=== PATIENT | female | born 1955 | race African-American/Black ===

== ENCOUNTER 2025-02-11 07:06 | Inpatient (IN) | payer MEDICARE, OTHER ==
[~2025-02-11] VITALS: Ht 170.2 cm; Wt 66.7 kg
[2025-02-11 08:10] LABS: BASOPHILS % 0.7 % (0.0-2.0); EOSINOPHILS % 5.3 % (0.0-5.0); HEMATOCRIT. 30.6 % (36.0-48.0); HEMOGLOBIN. 10.2 g/dL (12.0-16.0); LYMPHOCYTES % 33.7 % (20.0-50.0); MEAN PLATELET VOLUME 7.6 fl (7.4-10.4); MONOCYTES % 5.8 % (2.0-8.0); NEUTROPHILS % 54.5 % (40.0-76.0); PLATELET 326 x1000/uL (130-400); RED BLOOD CELL COUNT 3.45 mill/uL (4.2-5.4); RED CELL DISTRIBUTION WIDTH 14.2 % (11.6-14.6)
[2025-02-11] MEDS: CHLORDIAZEPOXIDE 25MG CAPSULE PO ONE (08:15)
[2025-02-11 08:24] LABS: INR 1.0
[2025-02-11 08:31] LABS: CREATININE 1.2 mg/dL (0.6-1.0); UREA NITROGEN BLOOD 21.0 mg/dL (9-23)
[2025-02-11] MEDS ORDERED: CHLORDIAZEPOXIDE 25MG CAPSULE PO SCH (09:00)
[2025-02-11] MEDS: SODIUM CHLORIDE 0.9% 1,000 ML IV ONE (09:03)
[2025-02-11] MEDS: FOLIC ACID 1 MG, THIAMINE HCL 100 MG, MVI, ADULT NO.1 10 ML in DEXTROSE 5% WATER 1,000 ML IV ONE (09:03)
[2025-02-11] MEDS: LORAZEPAM 2MG/ML UD SYRINGE IV SCH (10:46)
[2025-02-11 14:00] VITALS: BP 140/70; PULSE 62; RESP 18; TEMP 36.5
[2025-02-11] MEDS ORDERED: IPRATROPIUM/ALBUTEROL 0.5-3(2.5)MG/3ML NEB HHN PRN (18:00)
[2025-02-11] MEDS ORDERED: ONDANSETRON HCL 4MG/2ML INJ IV PRN (18:00)
[2025-02-11] MEDS ORDERED: NALOXONE HCL 0.4MG/ML VIAL IV PRN (18:00)
[2025-02-11] MEDS: HYDROCODONE/ACETAMINOPHEN 5/325MG TABLET PO PRN (19:50)
[2025-02-11 20:00] VITALS: BP 119/62; PULSE 80; RESP 18; TEMP 36.4; O2SAT 99
[2025-02-11] MEDS: ENOXAPARIN 40MG/0.4ML SYR SUBCUT SCH (22:45)
[2025-02-11] MEDS ORDERED: DEXTROSE 50% WATER 50ML SYRINGE IV PRN (23:00)
[2025-02-11 23:09] LABS: ASPARTATE AMINOTRANSFERASE 27 IU/L (<34); BILIRUBIN DIRECT 0.2 mg/dL (<=3.0); BILIRUBIN TOTAL 0.5 mg/dL (0.1-1.0); PROTEIN TOTAL 7.2 g/dL (6.0-8.3)
[2025-02-11] MEDS: SODIUM CHLORIDE 0.45% 1,000 ML IV SCH (23:12)
[2025-02-12] VITALS (7 sets, daily range): BP systolic 130–169; BP diastolic 55–80; PULSE 60–85; RESP 17–19; TEMP 35.6–36.6; O2SAT 96–99
[2025-02-12] MEDS: BLOOD SUGAR DIAGNOSTIC STRIP TEST SCH (07:41)
[2025-02-12] MEDS: INSULIN LISPRO 100 UNITS/ML SUBCUT SCH (07:41)
[2025-02-12 07:57] LABS: BASOPHILS % 0.5 % (0.0-2.0); EOSINOPHILS % 7.4 % (0.0-5.0); HEMATOCRIT. 29.2 % (36.0-48.0); HEMOGLOBIN. 10.0 g/dL (12.0-16.0); LYMPHOCYTES % 40.9 % (20.0-50.0); MEAN PLATELET VOLUME 8.6 fl (7.4-10.4); MONOCYTES % 6.5 % (2.0-8.0); NEUTROPHILS % 44.7 % (40.0-76.0); PLATELET 254 x1000/uL (130-400); RED BLOOD CELL COUNT 3.19 mill/uL (4.2-5.4); RED CELL DISTRIBUTION WIDTH 14.3 % (11.6-14.6)
[2025-02-12 08:14] LABS: CLARITY URINE CLEAR (CLEAR); COLOR URINE YELLOW (YELLOW); GLUCOSE URINE NEGATIVE (NEGATIVE); KETONES URINE NEGATIVE (NEGATIVE); PH URINE 6.5 (4.5-8.0); PROTEIN URINE NEGATIVE (NEGATIVE); SPECIFIC GRAVITY URINE 1.010 (1.005-1.030)
[2025-02-12 08:15] LABS: LEUKOCYTE ESTERASE URINE TRACE (NEGATIVE); NITRITE URINE NEGATIVE (NEGATIVE); OCCULT BLOOD URINE NEGATIVE (NEGATIVE); UROBILINOGEN URINE 0.2 E.U./dL (0.2-1.0)
[2025-02-12 08:25] LABS: CREATININE 0.8 mg/dL (0.6-1.0); TRIGLYCERIDE 107 mg/dL (0-150); UREA NITROGEN BLOOD 11 mg/dL (9-23)
[2025-02-12 08:26] LABS: LDL CHOLESTEROL 78 mg/dL (5-100)
[2025-02-12 08:27] LABS: T4 FREE 1.23 ng/dL (0.89-1.76)
[2025-02-12 08:49] LABS: BACTERIA URINE 3+; SQUAMOUS EPITHELIAL CELL URINE 1+ /lpf (RARE/1+)
[2025-02-12 08:50] LABS: RBC URINE NONE SEEN /hpf (0-2); WBC URINE 0-2 /hpf (0-2)
[2025-02-12] MEDS ORDERED: METRONIDAZOLE 500 MG PREMIX 100 ML IV NR (18:00)
[2025-02-13] VITALS: BP 154/72; PULSE 75; RESP 17; TEMP 36.6; O2SAT 98
[2025-02-13 04:00] VITALS: BP 161/71; PULSE 84; RESP 18; TEMP 36.6; O2SAT 98
[2025-02-13 06:42] LABS: CREATININE 0.8 mg/dL (0.6-1.0); UREA NITROGEN BLOOD 12 mg/dL (9-23)
[2025-02-13 06:44] LABS: ASPARTATE AMINOTRANSFERASE 21 IU/L (<34); BILIRUBIN TOTAL 0.5 mg/dL (0.1-1.0); PROTEIN TOTAL 7.4 g/dL (6.0-8.3)
[2025-02-13 07:01] LABS: BASOPHILS % 0.6 % (0.0-2.0); EOSINOPHILS % 5.7 % (0.0-5.0); HEMATOCRIT. 30.8 % (36.0-48.0); HEMOGLOBIN. 10.7 g/dL (12.0-16.0); LYMPHOCYTES % 32.4 % (20.0-50.0); MEAN PLATELET VOLUME 8.1 fl (7.4-10.4); MONOCYTES % 7.3 % (2.0-8.0); NEUTROPHILS % 54.0 % (40.0-76.0); PLATELET 303 x1000/uL (130-400); RED BLOOD CELL COUNT 3.36 mill/uL (4.2-5.4); RED CELL DISTRIBUTION WIDTH 14.1 % (11.6-14.6)
[2025-02-13 08:00] VITALS: BP 160/66; PULSE 83; RESP 19; TEMP 36.6; O2SAT 98
[2025-02-13 12:00] VITALS: BP 120/72; PULSE 88; RESP 20; TEMP 36.6; O2SAT 98
[2025-02-13 16:00] VITALS: BP 167/71; PULSE 87; RESP 20; TEMP 36.5; O2SAT 98
[2025-02-13 20:00] VITALS: BP 149/73; PULSE 92; RESP 16; TEMP 36.5; O2SAT 99
[2025-02-14] VITALS: BP 135/77; PULSE 89; RESP 18; TEMP 36.3; O2SAT 97
[2025-02-14 04:00] VITALS: BP 153/73; PULSE 86; RESP 16; TEMP 36.7; O2SAT 99
[2025-02-14 08:00] VITALS: BP_SYST 122; BP_SYST 149; BP_DIAS 64; BP_DIAS 68; PULSE 93; RESP 20; TEMP 36.7; O2SAT 98
[2025-02-14 08:28] LABS: CREATININE 0.8 mg/dL (0.6-1.0); UREA NITROGEN BLOOD 12 mg/dL (9-23)
[2025-02-14 08:30] LABS: ASPARTATE AMINOTRANSFERASE 20 IU/L (<34); BILIRUBIN TOTAL 0.4 mg/dL (0.1-1.0)
[2025-02-14 08:31] LABS: PROTEIN TOTAL 6.4 g/dL (6.0-8.3)
[2025-02-14 11:29] LABS: BASOPHILS % 0.5 % (0.0-2.0); EOSINOPHILS % 5.8 % (0.0-5.0); HEMATOCRIT. 28.4 % (36.0-48.0); HEMOGLOBIN. 9.6 g/dL (12.0-16.0); LYMPHOCYTES % 29.6 % (20.0-50.0); MEAN PLATELET VOLUME 7.7 fl (7.4-10.4); MONOCYTES % 7.6 % (2.0-8.0); NEUTROPHILS % 56.5 % (40.0-76.0); PLATELET 276 x1000/uL (130-400); RED BLOOD CELL COUNT 3.08 mill/uL (4.2-5.4); RED CELL DISTRIBUTION WIDTH 14.2 % (11.6-14.6)
[2025-02-14 12:00] VITALS: BP 155/70; PULSE 78; RESP 20; TEMP 36.3; O2SAT 100
[2025-02-14] MEDS: MAGNESIUM 1 G PREMIX 100 ML IV SCH (15:47)
[2025-02-14 16:00] VITALS: BP 130/74; PULSE 74; RESP 20; TEMP 36.3; O2SAT 100
[2025-02-14 20:00] VITALS: BP 159/71; PULSE 90; RESP 18; TEMP 36.5; O2SAT 97
[2025-02-15] VITALS: BP 153/62; PULSE 78; RESP 18; TEMP 37.1; O2SAT 98
[2025-02-15 04:00] VITALS: BP 145/66; PULSE 82; RESP 18; TEMP 36.4; O2SAT 95
[2025-02-15 08:00] VITALS: BP 136/90; PULSE 87; RESP 17; TEMP 36.4; O2SAT 99
[2025-02-15 08:26] LABS: BASOPHILS % 0.4 % (0.0-2.0); EOSINOPHILS % 5.5 % (0.0-5.0); HEMATOCRIT. 27.5 % (36.0-48.0); HEMOGLOBIN. 9.6 g/dL (12.0-16.0); LYMPHOCYTES % 27.3 % (20.0-50.0); MEAN PLATELET VOLUME 7.7 fl (7.4-10.4); MONOCYTES % 7.6 % (2.0-8.0); NEUTROPHILS % 59.2 % (40.0-76.0); PLATELET 217 x1000/uL (130-400); RED BLOOD CELL COUNT 2.87 mill/uL (4.2-5.4); RED CELL DISTRIBUTION WIDTH 14.2 % (11.6-14.6)
[2025-02-15 08:42] LABS: CREATININE 0.8 mg/dL (0.6-1.0)
[2025-02-15 08:43] LABS: UREA NITROGEN BLOOD 9 mg/dL (9-23)
[2025-02-15 08:44] LABS: ASPARTATE AMINOTRANSFERASE 21 IU/L (<34)
[2025-02-15 08:45] LABS: BILIRUBIN TOTAL 0.8 mg/dL (0.1-1.0); PROTEIN TOTAL 6.6 g/dL (6.0-8.3)
[2025-02-15 12:00] VITALS: BP 161/65; PULSE 79; RESP 18; TEMP 36.6; O2SAT 99
[2025-02-15 13:03] VITALS: BP 148/71; PULSE 98; TEMP 97.8; O2SAT 99
[2025-02-15] MEDS ORDERED: HYDRALAZINE 20MG/ML VIAL IV ONE (14:45)
[2025-02-15] MEDS: CLONIDINE 0.1MG TABLET PO SCH (14:57)
[2025-02-15 16:00] VITALS: BP 148/80; PULSE 90; RESP 19; TEMP 36.5; O2SAT 99
[2025-02-15] MEDS ORDERED: HYDRALAZINE 10 MG in SODIUM CHLORIDE 0.9% 49.5 ML IV SCH (16:00)
== END 2025-02-15 19:20 | DRG 392 ==
LOC: ER 07:06 → 6EST 10:22 → EDBEDREQ 10:35 → EDBEDREQTM 10:35 → ENRESERV 10:50
PROVIDERS: ADMIT Internal Medicine; ATTEND Internal Medicine
DX: R10.31 Right lower quadrant pain (principal); I69.351 Hemiplegia and hemiparesis following cerebral infarction affecting right dominant side; I10 Essential (primary) hypertension; E11.9 Type 2 diabetes mellitus without complications; D64.9 Anemia, unspecified; R13.12 Dysphagia, oropharyngeal phase; R19.7 Diarrhea, unspecified; G89.29 Other chronic pain; I69.320 Aphasia following cerebral infarction
CPT/HCPCS: 36415; 74176; 76700; 80048; 80053; 80061; 80076; 81003; 82962; 83735; 84439; 84443; 84481; 85025; 99285; A4606; J0360; J1650; J1815; J2060; J3411; J3475; J3490; J7030; J7070